=== PATIENT | female | born 1960 | race Caucasian/White ===

== ENCOUNTER 2022-05-04 11:41 | Outpatient (CLI) | payer OTHER, SELFPAY ==
[2022-05-04 12:31] LABS: SARS-CoV-2 Ag Negative (Negative)
== END 2022-05-04 11:42 | disposition home or self-care (01) ==
LOC: CHSLAB 11:53
PROVIDERS: PCP Family Medicine; Visit Provider Family Medicine
DX: Z20.822 Contact with and (suspected) exposure to COVID-19 (principal)
CPT/HCPCS: 87426; C9803

== ENCOUNTER 2022-07-11 12:34 | Emergency (ER) | payer OTHER, MEDICAID, SELFPAY ==
[2022-07-11 12:48] VITALS: BP 138/81; PULSE 86; RESP 20; TEMP 36.5; O2SAT 97
--- NOTE | 2022-07-11 12:49 | ED.EXTPRO ---
HPI - Extremity Problem General Chief complaint: Extremity Injury, Lower Stated complaint: INJURY R FOOT PAIN Time Seen by Provider: 07/11/22 12:49 Source: patient and RN notes reviewed Mode of arrival: ambulatory Limitations: no limitations History of Present Illness HPI Narrative: patient states that she had a injury at work about 6 weeks ago. She says she bent back her foot so hyperflexion. She has had 2 x-rays which have both been negative. She says it just continues to cause her pain and it is red with some swelling and pain in her right 1st MTP joint. MD Complaint: extremity pain and extremity swelling Onset (ago): week(s) Pain Consistency: constant Location: right and lower extremity Quality: burning, aching and dull Radiation: none Relieving factors: nothing Exacerbating factors: weight bearing and palpation Associated symptoms: denies other symptoms Related Data Allergies Allergy/AdvReac Type Severity Reaction Status Date / Time No Known Allergies Allergy Verified 07/11/22 14:03 [facility] Social History Social History (Updated 07/11/22 @ 13:12 by Kenney Cardozo MD) Smoking packs per day: 1 Smoking cigarettes per day: 20.0 Smoking status: Current every day smoker Tobacco type: cigarettes Exam Const: General: healthy appearing, no acute distress and alert Nutritional Appearance: well nourished Orientation/consciousness: patient oriented x3 Limitations: no limitations HENMT: Head: normal to inspection Ears: external ears normal Eyes: Conjunctivae: conjunctivae normal Pupils: Equal, round and reactive pupils present EOM: EOMs intact bilaterally Neck: Neck: normal visual inspection Resp: Effort & Inspection: normal respiratory effort Auscultation: clear to auscultation bilaterally Cardio: Rate: regular rate Rhythm: regular rhythm GI: GI Palp: Yes Soft to palpation and No Tenderness to palpation present (GI) Auscultation: normal bowel sounds Back/Spine/Pelvis: Cervical Spine: cervical ROM normal Thoracic/Lumbar Spine: thoraco-lumbar ROM normal Skin: General skin exam: normal color Rashes: no rashes Neuro: General: patient oriented x3, moves all extremities, no focal motor deficits and CN's II-XI intact bilaterally Speech: normal speech Gait exam (Neuro): Normal gait present Extrem: General: no clubbing, cyanosis or edema Right lower extremity: foot Details: tenderness Location: of the great toe Location: at the MTP joint, abnormal ROM of toe Details: pain with active ROM Location: of the great toe and pain with passive ROM Location: of the great toe and warmth Location: of the great toe Location: at the MTP joint Psych: Mental Status: mental status grossly normal Affect: normal affect Attitude: cooperative Course Vital Signs Vital signs: Vital Signs Temperature 36.5 C 07/11/22 12:48 Pulse Rate 86 07/11/22 12:48 Respiratory Rate 20 07/11/22 12:48 Blood Pressure 138/81 07/11/22 12:48 Pulse Oximetry 97 07/11/22 12:48 Oxygen Delivery Room Air 07/11/22 12:48 Temperature 36.5 C 07/11/22 12:48 Pulse Rate 73 07/11/22 13:45 Respiratory Rate 18 07/11/22 13:45 Blood Pressure 107/67 07/11/22 13:45 Pulse Oximetry 98 07/11/22 13:45 Oxygen Delivery Room Air 07/11/22 13:45 MDM - Extremity (Nontraumatic) Lab Data Attestation: I reviewed the patient's lab results. Result diagrams: 07/11/22 13:22 07/11/22 13:22 Labs: Lab Results 07/11/22 07/11/22 Range/Units 13:22 13:22 WBC 7.1 (4.8-10.8) K/mm3 RBC 5.02 (4.20-5.40) M/mm3 Hgb 15.0 (12.0-15.0) g/dL Hct 44.7 (35.0-49.0) % MCV 89.0 (78.0-102.0) fL MCH 29.9 (27.0-31.0) pg MCHC 33.6 (32.0-36.0) g/dL RDW 12.7 (11.6-14.4) % Plt Count 176 (150-420) K/mm3 MPV 12.2 H (9.2-11.8) fl Immature Gran % (Auto) 0.1 H (0.0-0.0) % Neut % (Auto) 63.3 (50.0-70.0) % Lymph % (Auto) 28.7 (18.0-42.0) % [place] % (Auto) 4.8 (2.0-
[2022-07-11 13:24] LABS: Basophils Absolute Auto 0.04 K/mm3 (0.00-0.10); Basophils Percent Auto 0.6 % (0.0-1.0); Eosinophils Absolute Auto 0.18 K/mm3 (0.02-0.50); Eosinophils Percent Auto 2.5 % (1.0-6.0); Hematocrit 44.7 % (35.0-49.0); Immature Granulocyte Absolute 0.01 K/mm3 (0.00-0.00); Immature Granulocyte Percent A 0.1 % (0.0-0.0); Lymphocytes Absolute Auto 2.03 K/mm3 (1.10-4.50); Lymphocytes Percent Auto 28.7 % (18.0-42.0); Mean Corpuscular HGB Conc 33.6 g/dL (32.0-36.0); Mean Corpuscular Hemoglobin 29.9 pg (27.0-31.0); Mean Platelet Volume 12.2 fl (9.2-11.8); Monocytes Absolute Auto 0.34 K/mm3 (0.10-0.90); Monocytes Percent Auto 4.8 % (2.0-11.0); Neutrophils Absolute Auto 4.5 K/mm3 (1.7-7.2); Neutrophils Percent Auto 63.3 % (50.0-70.0); Platelet Count Result 176 K/mm3 (150-420); Red Blood Count 5.02 M/mm3 (4.20-5.40); Red Cell Distribution Width 12.7 % (11.6-14.4); White Blood Count 7.1 K/mm3 (4.8-10.8)
[2022-07-11 13:38] LABS: Anion Gap 11 mmol/L (8-16); Blood Urea Nitrogen 16 mg/dL (7-18); Calcium 8.7 mg/dL (8.5-10.1); Carbon Dioxide 23 mmol/L (21-32); Chloride 107 mmol/L (98-108); Estimated CRCL calculation 69 ml/min; Estimated Glomerular Filt Rate 60; Glucose 140 mg/dL (70-99); Osmolality Calculated 295 mOsm/kg (285-295); Potassium 3.9 mmol/L (3.5-5.1); Sodium 141 mmol/L (136-145); Uric Acid 6.1 mg/dL (2.6-6.0)
[2022-07-11 13:45] VITALS: BP 107/67; PULSE 73; RESP 18; O2SAT 98
[2022-07-11 13:58] LABS: CRP < 0.5 mg/dL (0.0-0.9)
[2022-07-11 14:14] VITALS: BP 105/72; PULSE 66; RESP 18; TEMP 36.4; O2SAT 98
--- NOTE | 2022-07-11 18:37 | PC.NURSE ---
On 07/11/22, the student, [gema boland ], provided care and completed [facility] documentation on this patient. I have reviewed the student's documentation and agree with the findings.
== END 2022-07-11 14:13 | disposition home or self-care (01) ==
PROVIDERS: Emergency Provider Emergency Medicine; PCP Family Medicine
DX: M10.071 Idiopathic gout, right ankle and foot (principal)
CPT/HCPCS: 36415; 80048; 84550; 85025; 86140; 99283